=== PATIENT | male | born 1980 | race Caucasian/White ===

== ENCOUNTER 2016-09-25 05:27 | Day surgery (SDC) | payer OTHER ==
[2016-09-22 16:21] VITALS: Ht 162.6 cm; Wt 57.3 kg
[~2016-09-25] VITALS: Ht 162.6 cm; Wt 57.3 kg
[2016-09-25] VITALS (17 sets, daily range): BP systolic 86–117; BP diastolic 47–78; PULSE 82–112; RESP 11–22
[~2016-09-25 05:27] MED LIST: ACET1TAB40; HYDR-3720 PO; HYDR-762 PO
[2016-09-25] MEDS ORDERED: MIDAZOLAM 1 MG/ML 2 ML INJ ONE (06:23)
[2016-09-25] MEDS ORDERED: GLYCOPYRROLATE 0.4 MG INJ ONE (06:23)
[2016-09-25] MEDS ORDERED: LIDOCAINE 2% (SDV) 5 ML INJ ONE (06:23)
[2016-09-25] MEDS ORDERED: ROCURONIUM 50 MG INJ ONE (06:23)
[2016-09-25] MEDS ORDERED: NEOSTIGMINE 3 MG/3 ML SYRINGE ONE (06:23)
[2016-09-25] MEDS ORDERED: FENTAnyl 50 MCG/ML VIAL ONE (06:23)
[2016-09-25] MEDS ORDERED: PROPOFOL 20 ML ONE (06:23)
[2016-09-25] MEDS ORDERED: DEXAMETHASONE 4 MG/ML 1 ML INJ ONE (06:25)
[2016-09-25] MEDS ORDERED: ONDANSETRON 4 MG INJ ONE (06:26)
[2016-09-25] MEDS ORDERED: EPHEDrine SULFATE 50 MG/5 ML SYG IV PRN (06:30)
[2016-09-25] MEDS ORDERED: ATROPINE 1 MG/10 ML SYRINGE IV PRN (06:30)
[2016-09-25] MEDS ORDERED: morphine (1 MG/ML) 10ML SYRINGE IV PRN ×3 (06:30)
[2016-09-25] MEDS ORDERED: ONDANSETRON 4 MG INJ IV PRN (06:30)
[2016-09-25] MEDS ORDERED: FENTAnyl 50 MCG/ML VIAL IV PRN (06:30)
[2016-09-25] MEDS ORDERED: MEPERIDINE 25 MG INJ IV PRN (06:30)
[2016-09-25] MEDS ORDERED: MIDAZOLAM 1 MG/ML 2 ML INJ IV PRN (06:30)
[2016-09-25] MEDS ORDERED: OXYCODONE/ACETAMINOPHEN (5/325) TAB PO PRN ×2 (06:30)
[2016-09-25] MEDS ORDERED: LABETALOL HCL 20MG INJ IV PRN (06:30)
[2016-09-25] MEDS ORDERED: hydrALAzine 20 MG INJ IV PRN (06:30)
[2016-09-25] MEDS ORDERED: HYDROmorphONE (0.2 MG/ML) 10ML SYG IV PRN ×2 (06:30)
[2016-09-25] MEDS ORDERED: DIPHENHYDRAMINE 50 MG INJ IV PRN (06:30)
[2016-09-25] MEDS ORDERED: ROPIVACAINE 0.5 % 30 ML VIAL ONE ×2 (06:55→08:15)
[2016-09-25] MEDS ORDERED: BUPIVACAINE 0.25% (MPF) 30 ML INJ ONE (06:55)
[2016-09-25] MEDS ORDERED: POVIDONE IODINE 10% 28.4 GM OINT ONE (06:55)
[2016-09-25] MEDS ORDERED: SUCCINYLCHOLINE CHLORIDE 100 MG/5 ML SYG IV ONE (07:00)
[2016-09-25] MEDS ORDERED: LABETALOL HCL 20MG INJ ONE (08:05)
[2016-09-25] MEDS ORDERED: CEFAZOLIN 1 GM INJ ONE (08:33)
[2016-09-25] MEDS ORDERED: ALBUTEROL 0.083% (NEB) 2.5 MG/3 ML AMP ONE (08:35)
--- NOTE | 2016-09-25 08:57 | HPN ---
Date/Time of Note Date/Time of Note DATE: 09/25/16 TIME: 07:26 Interval H&P Admission Note Pt. seen H&P reviewed: No system changes DAMARIS SLAUGHTER MD Sep 25, 2016 08:57
[2016-09-25] MEDS ORDERED: KETOROLAC 30 MG INJ IV STA (08:59)
[2016-09-25] MEDS ORDERED: morphine 10 MG INJ IV PRN (09:00)
[2016-09-25] MEDS ORDERED: morphine 2 MG INJ IV PRN (09:00)
--- NOTE | 2016-09-25 09:06 | OPR ---
Date/Time of Note Date/Time of Note DATE: 09/25/16 TIME: 09:03 Operative Report Free Text/Dictation DATE: 09/25/2016 Preoperative Diagnosis 1. Left knee pain 2. Left knee posterior horn and mid-body medial meniscal tear Postoperative Diagnosis 1. Left knee pain 2. Left knee posterior horn and mid-body medial meniscal tear Operation Performed Left knee arthroscopy with chondroplasty, partial medial menisectomy Surgeon: DAMARIS SLAUGHTER MD Anesthesia: general with local Tourniquet Time: 24 min at 250 mm Hg Estimated Blood Loss: minimal Complications: None Pt Condition Post Procedure: stable Indications Patient is a 36 year old male who had sustained a medial meniscal tear and was suffering from mechanical symptoms and pain. Given his increasing symptoms and lack of resolution with conservative treatment, physical therapy, NSAIDs, the patient was indicated for surgery. Procedure Description RISK NOTE: Patient was explained the risks and benefits of the surgery in the patients [place] language, including not limited to infection, bleeding, loss of limb, loss of life, need for future surgery, risk of anesthesia, risk of injury to the blood vessels and nerves, ligaments or tendons, and risk of deep vein thrombosis. Patient understood these risks and wished to proceed with the surgery. OPERATIVE NOTE: The correct operative site was noted and marked in the preoperative holding area. The patient was then brought back into the operative theater, placed supine on the operative table. Left knee was examined under anesthesia. Range of motion was 0-125. There is no varus or valgus or anterior or posterior instability. There is crepitus noticed at the patellofemoral joint. Tourniquet was then placed on the operative extremity thigh non-sterilely. Patient was then given preoperative antibiotics and then prepped and draped in normal sterile fashion. A timeout was taken and all parties in the room agreed it was the correct patient, correct extremity and correct procedure. Standard anterior lateral portal was created and the knee joint was entered with a blunt tipped trocar, followed by 30 arthroscope. Inflow was achieved with a pump and the pressure maintained at approximately 50 mmHg. A routine arthroscopic surgery was performed. The undersurface of the patella showed advanced grade 1 chondromalacia and the femoral trochlear groove showed grade 1 changes medially with no exposed bone. The medial and lateral gutters were visualized. There was no loose bodies noted in the medial gutter. There is no hypertrophic plica noted in the anterior and superior lateral aspect of the knee. The popliteus hiatus was entered and was normal. Lateral compartment was entered and no evidence of chondromalacia was seen on the lateral tibial plateau. Scope was then brought into the intercondylar notch and an anteromedial portal was made. Shaver was brought into the knee and small amount of fat pad and scar tissue was initially gently debrided. The articular surface of the lateral plateau and lateral condyle articular surface was largely well- maintained. The anterior cruciate ligament was intact and stable to probing. The knee was brought into a valgus position and the medial compartment was entered. The articular surface of the medial femoral condyle and medial tibial plateau revealed diffuse grade 2 chondromalacia with the majority of the grade 2 chondromalacia noted along the medial femoral condyle. There was a degenerative posterior horn medial meniscus tear that was associated with an oblique midbody flipped tear extending into the posterior horn that was visualized, trimmed and debrided gently with a motorized shaver and basket forceps. The motorized shaver and basket biters were used to smooth the remaining meniscal rim, with care to maintain the peripheral meniscal rim and have a stable horn attachment. A probe was introduced and this was carefully probed and was found to be stable. Chondroplasty was then carried out along the weightbearing aspect of the medial femoral condyle, medial tibial plateau, taking care to remove only loose articular cartilage debris and preserve functional articular cartilage. The lateral compartment was reentered and the loose chondral debris was debrided with motorized shaver. Attention was then directed back to the patella femoral joint and a chondroplasty was carried out along the weightbearing aspect of the trochlea and undersurface of the patella to maintain functional active articular cartilage. The knee was then irrigated with additional 2 L of lactated Ringers solution. Excess fluid was then drained. The portal sites were closed with 4-0 Monocryl and Steri-Strips and dressed with Xeroform and triple antibiotic ointment. The knee was then injected with 20 cc of 0.5% plain ropivacaine. A dry sterile dressing was then applied followed by a bulky soft bandage in a thigh-high Les stocking. At the completion of the surgery patient had palpable pulses, soft arms and brisk cap refill. The patient tolerated the procedure well and was taken to the PACU without any complications. All sponge and needle counts were correct. Patient will begin pain medicine and 48 hours of antibiotics as well Procedure Date: Sep 25, 2016 DAMARIS SLAUGHTER MD Sep 25, 2016 09:05
[2016-09-25] MEDS: FENTAnyl 50 MCG/ML VIAL IV PRN ×2 (09:26→09:30)
[2016-09-25] MEDS: HYDROmorphONE (0.2 MG/ML) 10ML SYG IV PRN ×2 (09:27→09:34)
== END 2016-09-25 10:52 | disposition home or self-care (01) ==
LOC: SDS 05:27
PROVIDERS: ATTEND Orthopaedic Surgery
DX: M23.222 Derangement of posterior horn of medial meniscus due to old tear or injury, left knee (principal); F17.200 Nicotine dependence, unspecified, uncomplicated
CPT/HCPCS: 29881; J0330; J0690; J1100; J1170; J1885; J2175; J2250; J2270; J2405; J2710; J2795; J3010; Z7512; Z7610